=== PATIENT | male | born 1990 | race Caucasian/White ===

== ENCOUNTER 2018-08-06 00:41 | Emergency (ER) | payer SELFPAY, OTHER ==
[2018-08-06] MEDS: IBUPROFEN 800 MG TAB PO (01:43)
[2018-08-06] MEDS: ACETAMINOPHEN 500 MG TAB PO (01:43)
== END 2018-08-06 03:21 | disposition home or self-care (01) ==
LOC: FTE 00:41
DX: R07.0 Pain in throat (principal); B34.9 Viral infection, unspecified; H61.23 Impacted cerumen, bilateral
CPT/HCPCS: 87400; 87880; 99283